=== PATIENT | female | born 2000 | race Caucasian/White ===

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

== ENCOUNTER → 2021-01-29 08:05 | Outpatient (CLI) | payer OTHER, SELFPAY ==
[2021-01-21 10:03] VITALS: BMI 21.4
--- NOTE | 2021-01-29 08:07 | MRI_ITS ---
STUDY: MRI LEFT KNEE REASON FOR EXAM: Female, 20 years old. Pain and injury. TECHNIQUE: Standardized fat and water weighted pulse sequences were obtained in all 3 orthogonal planes. COMPARISON: X-ray dated 01/08/2021. FINDINGS: Patellofemoral articular cartilage preserved. Medial compartment articular cartilage preserved. Lateral compartment articular cartilage preserved. Bone marrow edema/contusion at the posterior lateral tibial corner, lateral femoral condyle and posterior medial tibial corner. No acute fracture line. No acute dislocation. No acute cortical destruction. Anterior cruciate ligament rupture (sagittal image 13 series 4). Posterior crucial ligament buckling without injury. Posterior medial meniscal capsular separation (sagittal image 6 series 4) without discrete meniscal tear. Lateral meniscus tiny posterior horn tear at the meniscal femoral ligament insertion site (sagittal image 18 series 4). Small volume joint effusion. No popliteal cyst. Mild soft tissue swelling. Normal medial collateral ligamentous complex (MCL). Normal distal semimembranosus, gracilis and semitendinosus tendons. Normal proximal tibiofibular articulation. Normal lateral collateral (fibular) ligament. Normal popliteus tendon. Normal biceps femoris tendon. Normal medial and lateral patellar retinaculum. Normal quadriceps tendon. Normal patellar tendon. Normal Hoffa''s fat pad. MRI/Lower Ext Joint Only (Routine) IMPRESSION: Acute ACL rupture with corresponding bone contusion/edema Posterior medial meniscocapsular separation Lateral meniscus tiny posterior horn tear Small volume joint effusion and mild soft tissue swelling Electronically Signed: Cortez Garcia DO at 9:26 EDT Tel , Service support ,
== END ==
PROVIDERS: PCP Nurse Practitioner Primary Care; Referring Provider Physician Assistant; Visit Provider Physician Assistant
DX: S83.92XA Sprain of unspecified site of left knee, initial encounter (principal); S89.92XA Unspecified injury of left lower leg, initial encounter
CPT/HCPCS: 73721

== ENCOUNTER 2023-08-27 22:55 | Outpatient (REF) | payer SELFPAY ==
[2023-08-27 22:56] VITALS: BP 141/81; PULSE 78; RESP 16; TEMP 36.4; O2SAT 97; BMI 21.6
--- NOTE | 2023-08-27 23:11 | EX.ED.UPPERE ---
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 She states she was wearing gloves. She did not see a hole in the glove and she did not see any blood in the finger. Needlestick protocol was instituted by nursing. She denies any other injuries. Believes her vaccinations to be up-to-date. PFSH [facility] Medical History Left knee injury Left knee sprain Home Medications NK 01/08/21 [History Last Taken Unknown] Allergy/AdvReac Type Severity Reaction Status Date / Time No Known Allergies Allergy Verified 02/02/21 09:34 ROS ROS ED Constitutional Constitutional ED: Denies chills or weight loss Eyes Eyes: Denies change in vision or diplopia ENT ENT ED: Denies ear pain, rhinorrhea or sore throat Cardiovascular Cardiovascular: Denies chest pain, orthopnea, palpitations or racing heartbeat Respiratory/Chest Respiratory/Chest: Denies cough, dyspnea or orthopnea Gastrointestinal Gastrointestinal: Denies abdominal pain, diarrhea, nausea or vomiting Genitourinary Genitourinary ED: Denies dysuria, hematuria or urinary frequency Musculoskeletal Musculoskeletal: Denies arthralgias or myalgias Integumentary Reports other Details: See history of present illness ; Denies abscess or rash Neurologic Neurologic: Denies headache(s) or weakness Psychiatric Psychiatric: Denies anxiety, depression, suicidal ideation or suicidal thoughts Endocrine Endocrinology: Denies polydipsia, polyphagia or polyuria Allergic/Immunologic Allergic/Immunologic ED: Denies mouth swelling, tongue swelling or urticaria EXAM Physical Exam Const Vital Signs: 08/27/23 22:56 Temperature 97.6 F L Temperature Source Temporal Pulse Rate 78 Respiratory Rate 16 Blood Pressure 141/81 H Blood Pressure Mean 101 Pulse Ox 97 Oxygen Delivery Method Room Air Positive well nourished and well developed General Appearance ED: well developed HEENT Reports normocephalic, head/scalp atraumatic and moist mucous membranes Eyes PERRL and EOMs intact bilaterally Neck no lymphadenopathy, supple and no JVD Resp normal respiratory effort and clear to auscultation bilaterally Cardio regular rate, regular rhythm and no murmurs GI normal to inspection, nondistended, normoactive bowel sounds and non-tender Palpation: soft Back/Spine no CVA tenderness and normal ROM Extremity normal to inspection General Extremety ED: Negative for edema General Extremity: Negative for edema Neuro oriented x3 and CN's II-XII intact bilaterally Sensorium / Orientation: alert Motor Exam: strength 5/5 throughout Psych mental status grossly normal Mood & Affect: Negative for depressed or tearful Skin no rashes or lesions noted and no wounds MDM MDM MDM Narrative Medical decision making narrative: Needlestick protocol was instituted. Patient will await results from the patient testing. She will follow-up with employee health. Local wound care as needed. 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 Disposition Disposition: Home, Self Care
[2023-08-28 03:23] LABS: HIV - WCH Non-Reactive (Nonreactive); Hepatitis B Surface Antibody Reactive; Hepatitis B Surface Antigen Non-Reactive (Nonreactive); Hepatitis C Antibody Non-Reactive (Nonreactive)
== END 2023-08-28 00:02 | disposition home or self-care (01) ==
LOC: ED 22:55
PROVIDERS: PCP Nurse Practitioner Primary Care; Visit Provider Emergency Medicine
DX: Z77.21 Contact with and (suspected) exposure to potentially hazardous body fluids (principal)
CPT/HCPCS: 86703; 86706; 86803; 87340; 99284